=== PATIENT | male | born 1950 | race Caucasian/White ===

== ENCOUNTER → 2020-11-16 | Outpatient (CLI) | payer MEDICARE | LOC: SLEEP 10-12 10:45 | DX: G47.33 Obstructive sleep apnea (adult) (pediatric) (principal); G47.61 Periodic limb movement disorder; Z99.89 Dependence on other enabling machines and devices | CPT/HCPCS: 95811 ==

== ENCOUNTER → 2022-07-01 | Outpatient (CLI) | payer MEDICARE, OTHER | LOC: RAD 08:40 | DX: M16.11 Unilateral primary osteoarthritis, right hip (principal) | CPT/HCPCS: 36415; 85049; 85610; 85730; J3301; Q9967 ==